=== PATIENT | male | born 1960 | race Caucasian/White ===

== ENCOUNTER 2017-05-15 07:31 | Emergency (ER) | payer OTHER ==
[~2017-05-15] VITALS: Ht 167.6 cm; Wt 70.8 kg
--- NOTE | 2017-05-15 07:31 | NUR ---
REQUESTING SUTURE REPAIR FOR 1CM LAC TO L FA S/P CUT ON BROKEN GLASS SEEN AT [facility] AND AND D/C W/ UPDATED TETANUS
[2017-05-15 09:05] VITALS: BP 125/78
== END 2017-05-15 09:20 ==
LOC: ER 07:35
DX: S51.812A Laceration without foreign body of left forearm, initial encounter (principal); W25.XXXA Contact with sharp glass, initial encounter; Y93.89 Activity, other specified; Y92.89 Other specified places as the place of occurrence of the external cause; Y99.8 Other external cause status
CPT/HCPCS: 12002; 73090; 99284; A4606; A6402; Z7610